=== PATIENT | female | born 1950 | race African-American/Black ===

== ENCOUNTER 2017-06-12 13:35 | Inpatient (IN) | payer OTHER, BC ==
--- NOTE | 2017-06-12 14:14 | PDOC ---
Attending Attestation - Resident Resident Name: Isaiah Lucero - ED Attending Attestation I have performed the following: I have examined & evaluated the patient, The case was reviewed & discussed with the resident, I agree w/resident's findings & plan, Exceptions are as noted - HPI HPI: 06/12/17 14:13 67 F with h/o HTN, HLD, DM presents to ER with L arm numbness and slurred speech since around 9 AM today. Pt states that she first noticed tingling in her left hand shortly after 9. Pt thought it was because her ring was too tight. The numbness progressed up her left arm. At 9:50, she was speaking to a friend on the phone, who told her that it sounded like she had food in her mouth. At this time, pt noticed that she was slurring her words. Pt denies any JACKMAN/N/V. Denies CP/SOB. - Physicial Exam PE: 06/12/17 14:56 "GENERAL: Awake, alert, and fully oriented, in no acute distress HEAD: No signs of trauma EYES: PERRLA, EOMI, sclera anicteric, conjunctiva clear ENT: Auricles normal inspection, hearing grossly normal, nares patent, oropharynx clear without exudates. Moist mucosa NECK: Nontender, no stepoffs, Normal ROM, supple, no lymphadenopathy, JVD, or masses LUNGS: Breath sounds equal, clear to auscultation bilaterally. No wheezes, and no crackles HEART: Regular rate and rhythm, normal S1 and S2, no murmurs, rubs or gallops ABDOMEN: Soft, nontender, normoactive bowel sounds. No guarding, no rebound. No masses EXTREMITIES: Normal range of motion, no edema. No clubbing or cyanosis. No cords, erythema, or tenderness NEUROLOGICAL: L sided facial droop, slightly diminished strength and sensation in LUE. 5/5 strength in BLE SKIN: Warm, Dry, normal turgor, no rashes or lesions noted. " - Medical Decision Making 06/12/17 14:58 67 F with LUE weakness and facial droop, concerning for acute stroke. Last known normal reportedly 9AM, though history is slightly unclear. - CTH - Labs - Neuro consult NIH Stroke Scale - Last Known Well Date/Time & Onset Date Last Known Well: 06/12/17 Time Last Known Well: 09:00 - Initial Evaluation Level of consciousness: Alert Ask patient the month and their age: Answers both correctly Ask patient to open & close eyes; make fist and let go: Obeys both correctly Best gaze (horizontal eye movement): Normal Visual field testing: No visual field loss Facial paresis (Show teeth/raise eyebrows/close eyes tight): Minor paralysis ( flattened nasolabial fold, asymmetry on smiling) Motor Function: Left Arm: Drift Motor Function: Right Arm: Normal (extends arm 90 (or 45) degrees for 10 seconds without drift Motor Function: Left Leg: Normal (extends leg 30 degrees for 5 seconds without drift) Motor Function: Right Leg: Normal (extends leg 30 degrees for 5 seconds without drift) Limb Ataxia: No ataxia Sensory(Use pinprick test arms,legs,trunk,face/side to side): Mild to moderate decrease in sensation Best language (Describe picture, name items, read sentences): No Aphasia Dysarthria (read several words): Mild to moderate slurring of words Extinction and Inattention: No abnormality - Total Score NIH Stroke Scale Score: 4
--- NOTE | 2017-06-12 14:15 | PDOC ---
History of Present Illness - General Chief Complaint: CVA/TIA Stated Complaint: SLURRED SPEECH, NUMBNESS TO LT HAND Time Seen by Provider: 06/12/17 13:53 - History of Present Illness Initial Comments: 06/12/17 14:12 Ms. Cuadra is a 67 yo woman with a past medical history of DM and HTN who presents after she started experiencing left arm numbness and slurred speech around 9:50 this morning. When she arrived to the ER she was noted to have left facial droop as well. She is currently experiencing no pain but says she is having difficulty pronouncing the letter p. She is here on vacation visiting family. Allergies: NKDA Surgeries: Hysterectomy Social: Some EtOH, denies tobacco history Past History - Past Medical History Allergies/Adverse Reactions: Allergies Allergy/AdvReac Type Severity Reaction Status Date / Time No Known Allergies Allergy Verified 06/12/17 13:42 CVA: Yes (MINI) Diabetes: Yes Hypercholesterolemia: Yes - Suicide/Smoking/Psychosocial Hx Smoking History: Never smoked Hx Alcohol Use: Yes (SOCIAL) Drug/Substance Use Hx: No Substance Use Type: None Review of Systems - Review of Systems Comments:: 06/12/17 14:19 GENERAL/CONSTITUTIONAL: +Difficulty speaking without some slurring. No fever or chills. HEAD, EYES, EARS, NOSE AND THROAT: No change in vision. No ear pain or discharge. No sore throat. CARDIOVASCULAR: No chest pain or shortness of breath RESPIRATORY: No cough, wheezing, or hemoptysis. GASTROINTESTINAL: No nausea, vomiting, diarrhea or constipation. GENITOURINARY: No dysuria, frequency, or change in urination. MUSCULOSKELETAL: No joint or muscle swelling or pain. No neck or back pain. SKIN: No rash NEUROLOGIC: +Some weakness in Left arm with numbness in left hand. No headache, vertigo, loss of consciousness. ENDOCRINE: No increased thirst. No abnormal weight change HEMATOLOGIC/LYMPHATIC: No anemia, easy bleeding, or history of blood clots. ALLERGIC/IMMUNOLOGIC: No hives or skin allergy. *Physical Exam - Vital Signs Last Vital Signs Temp Pulse Resp BP Pulse Ox 98.4 F 94 H 20 154/91 99 06/12/17 13:38 06/12/17 13:38 06/12/17 13:38 06/12/17 13:38 06/12/17 13:38 - Physical Exam Comments: 06/12/17 14:23 GENERAL: Awake, alert, and fully oriented, in no acute distress HEAD: No signs of trauma, normocephalic, atraumatic EYES: PERRLA, EOMI, sclera anicteric, conjunctiva clear ENT: Auricles normal inspection, hearing grossly normal, nares patent, oropharynx clear without exudates. Moist mucosa NECK: Normal ROM, supple, no lymphadenopathy, JVD, or masses LUNGS: No distress, speaks full sentences, clear to auscultation bilaterally HEART: Regular rate and rhythm, normal S1 and S2, no murmurs, rubs or gallops, peripheral pulses normal and equal bilaterally. ABDOMEN: Soft, nontender, normoactive bowel sounds. No guarding, no rebound. No masses EXTREMITIES: +Weakness noted in left arm with some drift. Normal inspection, Normal range of motion, no edema. No clubbing or cyanosis. NEUROLOGICAL: Cranial nerves II through XII grossly intact. Normal speech, normal gait, no focal sensorimotor deficits SKIN: Warm, Dry, normal turgor, no rashes or lesions noted. NIHSS: 3 Left arm drift Minor slurred speech Left facial droop NIH Stroke Scale - Last Known Well Date/Time & Onset Date Last Known Well: 06/12/17 Time Last Known Well: 09:50 - Initial Evaluation Level of consciousness: Alert Ask patient the month and their age: Answers both correctly Ask patient to open & close eyes; make fist and let go: Obeys both correctly Best gaze (horizontal eye movement): Normal Visual field testing: No visual field loss Facial paresis (Show teeth/raise eyebrows/close eyes tight): Normal symmetrical movement Motor Function: Left Arm: Drift Motor Function: Right Arm: Normal (extends arm 90 (or 45) degrees for 10 seconds without drift Motor Function: Left Leg: Normal (extends leg 30 degrees for 5 seconds without drift) Motor Function: Right Leg: Normal (extends leg 30 degrees for 5 seconds without drift) Limb Ataxia: No ataxia Sensory(Use pinprick test arms,legs,trunk,face/side to side): Normal Best language (Describe picture, name items, read sentences): Mild to moderate aphasia Dysarthria (read several words): Mild to moderate slurring of words Extinction and Inattention: No abnormality - Total Score NIH Stroke Scale Score: 3 Critical Care Time/[facility] Note - Medical Decision Making Note: 06/12/17 14:24 Patient presented at 4 hours and 15 minutes past first noticing symptoms. NIH stroke scale of 3 for left arm drift, slurred speech and left facial droop. Patient otherwise alert and oriented in no acute distress. Code trammell activated for suspected stroke. Discharge Disposition - Diagnosis Cerebrovascular accident (CVA) Qualifiers: CVA mechanism: unspecified Qualified Code(s): I63.9 - Cerebral infarction, unspecified - Discharge Dispostion Admit: Yes
[2017-06-12] MEDS ORDERED: ATORVASTATIN CA 80 MG TABLET (FP) PO ONE (14:36)
[2017-06-12] MEDS ORDERED: ASPIRIN 325 MG TABLET PO ONE (14:36)
[2017-06-12 14:40] LABS: BASOPHIL 0.4 % (0-2.0); EOSINOPHIL 1.2 % (0-4.5); MCH 27.1 pg (25.7-33.7); MCHC 32.5 g/dl (32.0-36.0); MEAN CELL VOLUME 83.5 fl (80-96); MEAN PLT VOLUME 7.1 fl (7.5-11.1); NEUTROPHILS 60.6 % (42.8-82.8); PLATELET COUNT 194 K/MM3 (134-434); RDW 14.3 % (11.6-15.6); WHITE BLOOD COUNT 5.7 K/mm3 (4.0-10.0)
[2017-06-12 14:49] LABS: ALBUMIN 3.4 g/dl (3.4-5.0); ANION GAP 8 (8-16); CALCIUM 9.1 mg/dL (8.5-10.1); CHOLESTEROL 241 mg/dL (50-200); CO2 30 mmol/L (21-32); GLUCOSE,RANDOM 99 mg/dL (74-106); SGOT/AST 20 U/L (15-37); SGPT/ALT 22 U/L (12-78)
[2017-06-12 14:51] LABS: ALK PHOS 113 U/L (45-117); BILIRUBIN,TOTAL 0.3 mg/dL (0.2-1.0); CPK 197 IU/L (26-192); TOT PROT 7.8 g/dl (6.4-8.2); TROPONIN I < 0.02 ng/ml (0.00-0.05)
[2017-06-12] MEDS ORDERED: ATORVASTATIN CA 80 MG TABLET (FP) ONE (14:52)
[2017-06-12] MEDS ORDERED: ASPIRIN 81 MG CHEWABLE TABLETS ONE (14:52)
[2017-06-12 15:06] LABS: INR 1.07 (0.82-1.09); PROTHROMBIN TIME (PATIENT) 11.8 SEC (9.98-11.88)
[2017-06-12] MEDS: SODIUM CHLORIDE 1,000 ML IV SCH (15:08)
--- NOTE | 2017-06-12 17:27 | PN ---
Teaching Attending Note Name of Resident: Humphrey Vuong ATTENDING PHYSICIAN STATEMENT I saw and evaluated the patient. I reviewed the resident's note and discussed the case with the resident. I agree with the resident's findings and plan as documented. SUBJECTIVE: Patient is a 67yo female with hx of CVA presented with left hand numbnesses and slurred speech. OBJECTIVE: Vital Signs Temperature 98.4 F 06/12/17 13:38 Pulse Rate 94 H 06/12/17 13:38 Respiratory Rate 20 06/12/17 13:38 Blood Pressure 154/91 06/12/17 13:38 O2 Sat by Pulse Oximetry (%) 99 06/12/17 13:38 CBCD WBC 5.7 K/mm3 (4.0-10.0) 06/12/17 14:12 RBC 4.17 M/mm3 (3.60-5.2) 06/12/17 14:12 Hgb 11.3 GM/dL (10.7-15.3) 06/12/17 14:12 Hct 34.8 % (32.4-45.2) 06/12/17 14:12 MCV 83.5 fl (80-96) 06/12/17 14:12 MCHC 32.5 g/dl (32.0-36.0) 06/12/17 14:12 RDW 14.3 % (11.6-15.6) 06/12/17 14:12 Plt Count 194 K/MM3 (134-434) 06/12/17 14:12 MPV 7.1 fl (7.5-11.1) L 06/12/17 14:12 CMP Sodium 141 mmol/L (136-145) 06/12/17 14:20 Potassium 4.0 mmol/L (3.5-5.1) 06/12/17 14:20 Chloride 103 mmol/L (98-107) 06/12/17 14:20 Carbon Dioxide 30 mmol/L (21-32) 06/12/17 14:20 Anion Gap 8 (8-16) 06/12/17 14:20 BUN 12 mg/dL (7-18) 06/12/17 14:20 Creatinine 1.0 mg/dL (0.55-1.02) 06/12/17 14:20 Creat Clearance w eGFR 54.97 (>60) 06/12/17 14:20 Random Glucose 99 mg/dL (74-106) 06/12/17 14:20 Calcium 9.1 mg/dL (8.5-10.1) 06/12/17 14:20 Total Bilirubin 0.3 mg/dL (0.2-1.0) 06/12/17 14:20 AST 20 U/L (15-37) 06/12/17 14:20 ALT 22 U/L (12-78) 06/12/17 14:20 Alkaline Phosphatase 113 U/L (45-117) 06/12/17 14:20 Total Protein 7.8 g/dl (6.4-8.2) 06/12/17 14:20 Albumin 3.4 g/dl (3.4-5.0) 06/12/17 14:20 CARDIAC ENZYMES Creatine Kinase 197 IU/L (26-192) H 06/12/17 14:20 Troponin I < 0.02 ng/ml (0.00-0.05) 06/12/17 14:20 Current Medications Generic Name Dose Route Start Last Admin Trade Name Freq PRN Reason Stop Dose Admin Dipyridamole/Aspirin 1 combo 06/12/17 20:45 Aggrenox - PO ONCE [facility] Heparin Sodium (Porcine) 5,000 unit 06/12/17 22:00 Heparin - SQ TID [facility] Sodium Chloride 1,000 mls @ 42 mls/hr 06/12/17 14:15 06/12/17 15:08 Normal Saline - IV 42 mls/hr ASDIR MISTI Administration Lisinopril 10 mg 06/13/17 10:00 Prinivil PO DAILY [facility] Home Medications Medication Instructions Recorded Aspirin/Dipyridamole [Aggrenox -] 1 combo PO ONCE 06/12/17 Atorvastatin Calcium 40 mg PO 06/12/17 Lisinopril 10 mg PO DAILY 06/12/17 Metformin HCl 500 mg PO DAILY 06/12/17 Simvastatin 40 mg PO HS 06/12/17 PE: sitting in bed with no acute distress. Neuro exam: CN2-12 grossly intact. No sensory or motor weakness noted. P5/5 bl heart:S1s2 POSITIVE, NO MURMUR APPRECIATED REST OF pe PER RESIDENT'S NOTE ASSESSMENT AND PLAN: Patient is a 67 year old female with a past medical history of TIA, HTN, HLD, presents to the ER with left hand numbnesses and slurred speech. . # Acute TIA r/o CVA with hx of CVA ; negative head CT ; ordered Brain MRI, MRA given aspirin 325mg x1 .lipid panel , Plavix ordered ,neuro consult appreciated , # T2DM sliding scale with coverage # HTN on Lisinopril DVT px: heparin
--- NOTE | 2017-06-12 18:17 | HP ---
CHIEF COMPLAINT: slurred speech PCP: out of town HISTORY OF PRESENT ILLNESS: 67 year old female from out of town, presents to the emergency room with slurred speacj and left hand tingling sensation that started early this morning. Patient state she was on the phone with her sister and her sister stated she was sounding "funny". She then went to the ER. Patient denies fever , chills, egan, n, v, chest pain, sob, abdominal pain, LOC, changed in bowel or bladder. PMHx of TIA, HLD, HTN. ER course was notable for: -out of tpa window -head Ct negative -NIH stroke scale +2; Recent Travel: yes from [place] PAST MEDICAL HISTORY: TIA , HLD, HTN PAST SURGICAL HISTORY: Social History: Smoking:no Drugs: no Family History: Allergies No Known Allergies Allergy (Verified 06/12/17 13:42) PHYSICAL EXAMINATION GENERAL: Awake, alert, and fully oriented, in no acute distress. HEAD: Normal with no signs of trauma. EYES: Pupils equal, round and reactive to light, extraocular movements intact, sclera anicteric, conjunctiva clear. No lid lag. EARS, NOSE, THROAT: Ears normal, nares patent, oropharynx clear without exudates. Moist mucous membranes. NECK: Normal range of motion, supple without lymphadenopathy, JVD, or masses. LUNGS: Breath sounds equal, clear to auscultation bilaterally. No wheezes, and no crackles. No accessory muscle use. HEART: Regular rate and rhythm, normal S1 and S2 without murmur, rub or gallop. ABDOMEN: Soft, nontender, not distended, normoactive bowel sounds, no guarding, no rebound, no masses. No hepatomegaly or splenomegaly. MUSCULOSKELETAL: Normal range of motion at all joints. No bony deformities or tenderness. No CVA tenderness. UPPER EXTREMITIES: 2+ pulses, warm, well-perfused. No cyanosis. No clubbing. No peripheral edema. LOWER EXTREMITIES: 2+ pulses, warm, well-perfused. No calf tenderness. No peripheral edema. NEUROLOGICAL: Cranial nerves II-XII intact. Normal speech. Normal gait. left arm pronator drift PSYCHIATRIC: Cooperative. Good eye contact. Appropriate mood and affect. SKIN: Warm, dry, normal turgor, no rashes or lesions noted, normal capillary refill. Laboratory Results - last 24 hr 06/12/17 16:47 POC Glucometer [id number] ASSESSMENT/PLAN: 67 year old female with a past medical history of TIA, HTN, HLD, presents to the ER with left hand numbnesses and slurred speech, TIA vs CVA. #CVA vs TIA: -stroke protocol activated -out of tpa window -head CT negative -Brain MRI, MRA -aspirin 325mg x1 -was on aggrenox at home; -lipid panel -tsh -bed side swallow eval; passed -echo -patient was on statin but allergic ; she was given one time in ER simvistatin 80mg. look for rxn if not then continue -consult neurology #DM; insulin SS bgm; dvt ppl Problem List - Problem (1) Cerebrovascular accident (CVA) Code(s): I63.9 - CEREBRAL INFARCTION, UNSPECIFIED Qualifiers: CVA mechanism: unspecified Qualified Code(s): I63.9 - Cerebral infarction, unspecified (2) HTN (hypertension) Code(s): I10 - ESSENTIAL (PRIMARY) HYPERTENSION Visit type - Emergency Visit Emergency Visit: Yes ED Registration Date: 06/12/17 Care time: The patient presented to the Emergency Department on the above date and was hospitalized for further evaluation of their emergent condition. - New Patient This patient is new to me today: Yes Date on this admission: 06/12/17 - Critical Care Critical Care patient: No
[2017-06-12] MEDS ORDERED: ASPIRIN/DIPYRIDAMOLE 25 MG/200 MG CAPSULE (FP) PO ONE (20:45)
--- NOTE | 2017-06-12 21:30 | HP ---
CHIEF COMPLAINT: slurred speech PCP: N/A HISTORY OF PRESENT ILLNESS: Patient is a 67 yo F with a PMH of HLD, HTN, and CVA/TIA, presented today with a left hand tingling sensation that started around 10am. She said she didn't think much of it until she was told by her sister that she sounded funny on the phone a few hours later. She said she was having slurred speech said that her symptoms resolved around 4pm. She denied headache, sob, LOC, chest pain, nausea, vomiting, dizziness, weakness, ER course was notable for: -out of tpa window -Head CT: No acute intracranial hemorrhage. Chronic right MCA infarcts, chronic right cerebellar infarct and small chronic cortical infarcts in the high left parietal lobe. -NIH stroke scale: 2 Recent Travel: came from [place] PAST MEDICAL HISTORY: HTN, HLD, HTN, CVA/TIA PAST SURGICAL HISTORY: N/A Social History: Smoking:denies Alcohol:denies Drugs: denies Family History: Allergies No Known Allergies Allergy (Verified 06/12/17 13:42) HOME MEDICATIONS: Home Medications Medication Instructions Recorded Aspirin/Dipyridamole [Aggrenox -] 1 combo PO ONCE 06/12/17 Atorvastatin Calcium 40 mg PO 06/12/17 Lisinopril 10 mg PO DAILY 06/12/17 Metformin HCl 500 mg PO DAILY 06/12/17 Simvastatin 40 mg PO HS 06/12/17 REVIEW OF SYSTEMS CONSTITUTIONAL: Absent: fever, chills, diaphoresis, generalized weakness, malaise, loss of appetite, weight change HEENT: Absent: rhinorrhea, nasal congestion, throat pain, throat swelling, difficulty swallowing, mouth swelling, ear pain, eye pain, visual changes CARDIOVASCULAR: Absent: chest pain, syncope, palpitations, irregular heart rate, lightheadedness , peripheral edema RESPIRATORY: Absent: cough, shortness of breath, dyspnea with exertion, orthopnea, wheezing, stridor, hemoptysis GASTROINTESTINAL: Absent: abdominal pain, abdominal distension, nausea, vomiting, diarrhea, constipation, melena, hematochezia GENITOURINARY: Absent: dysuria, frequency, urgency, hesitancy, hematuria, flank pain, genital pain MUSCULOSKELETAL: Absent: myalgia, arthralgia, joint swelling, back pain, neck pain SKIN: Absent: rash, itching, pallor HEMATOLOGIC/IMMUNOLOGIC: Absent: easy bleeding, easy bruising, lymphadenopathy, frequent infections ENDOCRINE: Absent: unexplained weight gain, unexplained weight loss, heat intolerance, cold intolerance NEUROLOGIC: Absent: headache, focal weakness or paresthesias, dizziness, unsteady gait, seizure, mental status changes, bladder or bowel incontinence PSYCHIATRIC: Absent: anxiety, depression, suicidal or homicidal ideation, hallucinations. PHYSICAL EXAMINATION Vital Signs - 24 hr 06/12/17 06/12/17 18:44 18:58 Pulse Rate 85 Pulse Rate [ 84 Apical] Respiratory 20 Rate Blood Pressure 150/85 [Left Arm] O2 Sat by Pulse 100 100 Oximetry (%) GENERAL: Awake, alert, and fully oriented, in no acute distress. HEAD: Normal with no signs of trauma. EYES: Pupils equal, round and reactive to light, extraocular movements intact, sclera anicteric, conjunctiva clear. No lid lag. EARS, NOSE, THROAT: Ears normal, nares patent, oropharynx clear without exudates. Moist mucous membranes. NECK: Normal range of motion, supple without lymphadenopathy, JVD, or masses. LUNGS: Breath sounds equal, clear to auscultation bilaterally. No wheezes, and no crackles. No accessory muscle use. HEART: Regular rate and rhythm, normal S1 and S2 without murmur, rub or gallop. ABDOMEN: Soft, nontender, not distended, normoactive bowel sounds, no guarding, no rebound, no masses. No hepatomegaly or splenomegaly. MUSCULOSKELETAL: Normal range of motion at all joints. No bony deformities or tenderness. No CVA tenderness. UPPER EXTREMITIES: Left arm pronator drift. 2+ pulses, warm, well-perfused. No cyanosis. No clubbing. No peripheral edema. LOWER EXTREMITIES: 2+ pulses, warm, well-perfused. No calf tenderness. No peripheral edema. NEUROLOGICAL: Cranial nerves II-XII intact. Normal speech. Normal gait. PSYCHIATRIC: Cooperative. Good eye contact. Appropriate mood and affect. SKIN: Warm, dry, normal turgor, no rashes or lesions noted, normal capillary refill. Laboratory Results - last 24 hr 06/12/17 16:47 POC Glucometer [id number] ASSESSMENT/PLAN: 67 year old female with a past medical history of TIA, HTN, HLD, presents to the ER with left hand numbnesses and slurred speech. #CVA vs. TIA -stroke protocol activated -Head CT unremarkable for acute intracranial hemorrhage -Out of TPA window -Brain MRA unremarkable -Neurology consulted -Passed bedside swallow eval -Continue aspirin 81mg, was given 325 once. -TSH and lipid panel ordered -FU labs in the AM #HTN: -Continue Lisinopril 10mg -Continue Amlodipine 5mg #FEN: - NS 42cc/hour -WNL -Sodium controlled diet Visit type - Emergency Visit Emergency Visit: Yes ED Registration Date: 06/12/17 Care time: The patient presented to the Emergency Department on the above date and was hospitalized for further evaluation of their emergent condition. - New Patient This patient is new to me today: Yes Date on this admission: 06/13/17 - Critical Care Critical Care patient: No
[2017-06-12] MEDS ORDERED: amLODIPine BESYLATE 5 MG TABLET (FP) ONE (21:31)
[2017-06-12] MEDS ORDERED: HEPARIN NA (PORCINE) 5,000 UNITS/ML 1ML VIAL ONE (21:32)
[2017-06-12] MEDS ORDERED: ASPIRIN/DIPYRIDAMOLE 25 MG/200 MG CAPSULE (FP) ONE (21:32)
[2017-06-12] MEDS: amLODIPine BESYLATE 5 MG TABLET (FP) PO SCH (21:49)
[2017-06-12] MEDS: HEPARIN NA (PORCINE) 5,000 UNITS/ML 1ML VIAL SQ SCH (21:49)
[2017-06-12 21:57] LABS: URINE APPEARANCE CLEAR; URINE BILIRUBIN NEGATIVE (NEGATIVE); URINE BLOOD NEGATIVE (NEGATIVE); URINE COLOR LTYELLOW; URINE GLUCOSE (UA) NEGATIVE (NEGATIVE); URINE KETONE NEGATIVE (NEGATIVE); URINE NITRITE NEGATIVE (NEGATIVE); URINE PROTEIN NEGATIVE (NEGATIVE); URINE UROBILINOGEN NEGATIVE mg/dL (0.2-1.0)
[2017-06-12 22:02] LABS: URINE LEUK ESTERASE 2+ (NEGATIVE)
[2017-06-12 22:26] LABS: URINE RBC <1 /hpf (0-3); URINE WBC 1 /hpf (3-5)
[2017-06-13 00:28] VITALS: BMI 27.6
[2017-06-13] MEDS ORDERED: PNEUMOC 13-VAL CONJ-DIP CRM/PF 0.5 ML DISP.SYRIN IM ONE (00:43)
[2017-06-13] MEDS: INSULIN SLIDING SCALE (NOVOLOG) 1 VIAL SQ SCH ×5 (01:24→23:00)
[2017-06-13] MEDS ORDERED: ACETAMINOPHEN 325 MG TABLET (FP) PO ONE (05:14)
[2017-06-13] MEDS: HEPARIN NA (PORCINE) 5,000 UNITS/ML 1ML VIAL SQ SCH ×3 (06:10→23:00)
[2017-06-13 07:23] LABS: ALBUMIN 3.1 g/dl (3.4-5.0); ANION GAP 5 (8-16); CALCIUM 8.6 mg/dL (8.5-10.1); CHOLESTEROL 230 mg/dL (50-200); CO2 28 mmol/L (21-32); CREATININE 0.9 mg/dL (0.55-1.02); GLUCOSE,RANDOM 102 mg/dL (74-106); MAGNESIUM 2.1 mg/dL (1.8-2.4); PHOSPHOROUS 3.6 mg/dL (2.5-4.9); SGOT/AST 20 U/L (15-37); SGPT/ALT 21 U/L (12-78)
[2017-06-13 07:31] LABS: ALK PHOS 118 U/L (45-117); BILIRUBIN,TOTAL 0.4 mg/dL (0.2-1.0); THYROID STIMULATING HORMONE 1.96 uIU/ml (0.358-3.74); TOT PROT 7.2 g/dl (6.4-8.2)
--- NOTE | 2017-06-13 08:53 | CON.NEURO ---
Consult - History of Present Illness History of Present Illness: 67 yo woman with a past medical history of DM and HTN who presents after she started experiencing left arm numbness and slurred speech around 9:50 this morning. When she arrived to the ER she was noted to have left facial droop as well. She is currently experiencing no pain but says she is having difficulty pronouncing the letter p. She is here on vacation visiting family. Patient presented at 4 hours and 15 minutes past first noticing symptoms. NIH stroke scale of 3 for left arm drift, slurred speech and left facial droop. Patient otherwise alert and oriented in no acute distress. Given low NIH and out of 3 hour window, TPA was not given. ( unable to get completed work up before the 4.5 hour window). MRI BRAIn reviewed-large RIGHT MCA stroke, MRA (-) . She feels like her Sx resolved. - Alcohol/Substance Use Hx Alcohol Use: Yes (SOCIAL) - Smoking History Smoking history: Never smoked Home Medications - Allergies Allergies/Adverse Reactions: Allergies Allergy/AdvReac Type Severity Reaction Status Date / Time No Known Allergies Allergy Verified 06/12/17 13:42 - Home Medications Home Medications: Ambulatory Orders Aspirin/Dipyridamole [Aggrenox -] 1 combo PO ONCE 06/12/17 Atorvastatin Calcium 10 mg PO DAILY 06/12/17 Lisinopril 10 mg PO DAILY 06/12/17 Metformin HCl 500 mg PO BID 06/12/17 Clopidogrel Bisulfate [Clopidogrel] 75 mg PO DAILY 06/13/17 Physical Exam-Neuro Vital Signs: Vital Signs Temperature 98.6 F 06/13/17 06:00 Pulse Rate 80 06/13/17 06:00 Respiratory Rate 20 06/13/17 06:00 Blood Pressure 124/67 06/13/17 06:00 O2 Sat by Pulse Oximetry (%) 98 06/12/17 22:46 Labs: CBC, BMP 06/13/17 06:00 INR, PTT INR 1.07 (0.82-1.09) 06/12/17 14:12 - Neuro Exam Level Of Consciousness: Yes: Alert, Oriented to Person (EOMI, VFF, no clear facial, motor 5/5, no drift, reflexes symmetric, no sesnory deficits ) NIH Stroke Scale - Last Known Well Date/Time & Onset Date Last Known Well: 09/27/17 - Initial Evaluation Level of consciousness: Alert Ask patient the month and their age: Answers both correctly Ask patient to open & close eyes; make fist and let go: Obeys both correctly Best gaze (horizontal eye movement): Normal Visual field testing: No visual field loss Facial paresis (Show teeth/raise eyebrows/close eyes tight): Normal symmetrical movement Motor Function: Left Arm: Normal Motor Function: Right Arm: Normal (extends arm 90 (or 45) degrees for 10 seconds without drift Motor Function: Left Leg: Normal (extends leg 30 degrees for 5 seconds without drift) Motor Function: Right Leg: Normal (extends leg 30 degrees for 5 seconds without drift) Limb Ataxia: No ataxia Sensory(Use pinprick test arms,legs,trunk,face/side to side): Normal Best language (Describe picture, name items, read sentences): No Aphasia Dysarthria (read several words): Normal articulation Extinction and Inattention: No abnormality - Total Score NIH Stroke Scale Score: 0 Imaging - Results Cat Scan: Report Reviewed, Image Reviewed MRI: Report Reviewed, Image Reviewed Problem List - Problems (1) Cerebrovascular accident (CVA) Code(s): I63.9 - CEREBRAL INFARCTION, UNSPECIFIED Qualifiers: CVA mechanism: unspecified Qualified Code(s): I63.9 - Cerebral infarction, unspecified (2) HTN (hypertension) Code(s): I10 - ESSENTIAL (PRIMARY) HYPERTENSION (3) Left middle cerebral artery embolism Code(s): I66.02 - OCCLUSION AND STENOSIS OF LEFT MIDDLE CEREBRAL ARTERY Assessment/Plan 67 yo woman with a past medical history of DM and HTN who presents after she started experiencing left arm numbness and slurred speech around 9:50 this morning. When she arrived to the ER she was noted to have left facial droop as well. She is currently experiencing no pain but says she is having difficulty pronouncing the letter p. She is here on vacation visiting family. Patient presented at 4 hours and 15 minutes past first noticing symptoms. NIH stroke scale of 3 for left arm drift, slurred speech and left facial droop. Patient otherwise alert and oriented in no acute distress. Given low NIH and out of 3 hour window, TPA was not given. ( unable to get completed work up before the 4.5 hour window). MRI BRAIn reviewed-large RIGHT MCA stroke, MRA (-) . She feels like her Sx resolved. although large rdaiographic stroke, she appaers quite well without any notebale deficits EMBOLIC GOODSON ,cardioembolic vs other check ECHO, DOPPLERS, Holter (may need intermediate project manager holter) add plavix to ASA for now, + statin, JORGE PT, though will not likely require rehab DR GARZA [phone]
[2017-06-13] MEDS ORDERED: PT OWN MED DRAWER 7, Y5N ONE (09:43)
[2017-06-13] MEDS ORDERED: ASPIRIN 325 MG ENTERIC COATED TABLET (FP) PO SCH (10:00)
[2017-06-13] MEDS ORDERED: ASPIRIN COATED 81 MG TABLET.EC PO SCH (10:00)
[2017-06-13] MEDS: LISINOPRIL 10 MG TABLET (FP) PO SCH (10:09)
[2017-06-13] MEDS: amLODIPine BESYLATE 5 MG TABLET (FP) PO SCH (10:10)
--- NOTE | 2017-06-13 10:43 | EKG ---
Test Reason : Blood Pressure : / mmHG Vent. Rate : 087 BPM Atrial Rate : 087 BPM P-R Int : 124 ms QRS Dur : 124 ms QT Int : 396 ms P-R-T Axes : 065 053 057 degrees QTc Int : 476 ms NORMAL SINUS RHYTHM POSSIBLE LEFT ATRIAL ENLARGEMENT RIGHT BUNDLE BRANCH BLOCK ABNORMAL ECG WHEN COMPARED WITH ECG OF 26-DEC-2008 13:25, RIGHT BUNDLE BRANCH BLOCK IS NOW PRESENT Confirmed by JYOTHI ELIAS, MICHELLE ([id number]) on 06/13/2017 10:43:28 AM Referred By: Confirmed By:MICHELLE ROE MD
[2017-06-13] MEDS ORDERED: FLU VACCINE QUAD 60 MCG/0.5 ML (MDV 17-18) IM ONE (12:00)
[2017-06-13] MEDS: CLOPIDOGREL BISULFATE 75 MG TABLET (FP) PO SCH (13:36)
[2017-06-13 16:13] LABS: URINE MARIJUANA THC NEGATIVE ng/ml (CUTOFF=50)
--- NOTE | 2017-06-13 18:58 | PN ---
Physical Exam: SUBJECTIVE: Patient seen and examined. No acute events over night. Patient said she feels fine and denies pain, weakness, dizziness, nausea, vomiting, fever, and SOB. OBJECTIVE: Vital Signs Period Temp Pulse Resp BP Sys/Rabago Pulse Ox Last 24 Hr 97.5 F-98.6 F 75-87 16-20 106-150/51-85 98-100 GENERAL: The patient is awake, alert, and fully oriented, in no acute distress. HEAD: Normal with no signs of trauma. EYES: PERRL, extraocular movements intact, sclera anicteric, conjunctiva clear. No ptosis. ENT: Ears normal, nares patent, oropharynx clear without exudates, moist mucous membranes. NECK: Trachea midline, full range of motion, supple. LUNGS: Breath sounds equal, clear to auscultation bilaterally, no wheezes, no crackles, no accessory muscle use. HEART: Regular rate and rhythm, S1, S2 without murmur, rub or gallop. ABDOMEN: Soft, nontender, nondistended, normoactive bowel sounds, no guarding, no rebound, no hepatosplenomegaly, no masses. EXTREMITIES: 2+ pulses, warm, well-perfused, no edema. RLE strength 4/5. LLE strength 5/5 NEUROLOGICAL: Cranial nerves II through XII grossly intact. Normal speech, gait not observed. PSYCH: Normal mood, normal affect. SKIN: Warm, dry, normal turgor, no rashes or lesions noted Laboratory Results - last 24 hr 06/12/17 06/13/17 06/13/17 21:40 01:23 05:47 Sodium Potassium Chloride Carbon Dioxide Anion Gap BUN Creatinine Creat Clearance w eGFR POC Glucometer 112 103 Random Glucose Calcium Phosphorus Magnesium Total Bilirubin AST ALT Alkaline Phosphatase Total Protein Albumin Triglycerides Cholesterol Total LDL Cholesterol HDL Cholesterol TSH Urine Color Ltyellow Urine Appearance Clear Urine pH 6.0 Ur Specific [place] 1.020 Urine Protein Negative Urine Glucose (UA) Negative Urine Ketones Negative Urine Blood Negative Urine Nitrite Negative Urine Bilirubin Negative Urine Urobilinogen Negative Urine RBC <1 Urine WBC 1 Ur Epithelial Cells Rare Opiates Screen Methadone Screen Barbiturate Screen Phencyclidine Screen Ur Amphetamines Screen MDMA (Ecstasy) Screen Benzodiazepines Screen Cocaine Screen U Marijuana (THC) Screen 06/13/17 06/13/17 06/13/17 06:00 11:23 14:45 Sodium 140 Potassium 3.7 Chloride 107 Carbon Dioxide 28 Anion Gap 5 L BUN 11 Creatinine 0.9 Creat Clearance w eGFR > 60 POC Glucometer 107 Random Glucose 102 Calcium 8.6 Phosphorus 3.6 Magnesium 2.1 Total Bilirubin 0.4 D AST 20 ALT 21 Alkaline Phosphatase 118 H Total Protein 7.2 Albumin 3.1 L Triglycerides 103 Cholesterol 230 H Total LDL Cholesterol 156 H HDL Cholesterol 46 TSH 1.96 Urine Color Urine Appearance Urine pH Ur Specific [place] Urine Protein Urine Glucose (UA) Urine Ketones Urine Blood Urine Nitrite Urine Bilirubin Urine Urobilinogen Urine RBC Urine WBC Ur Epithelial Cells Opiates Screen Negative Methadone Screen Negative Barbiturate Screen Negative Phencyclidine Screen Negative Ur Amphetamines Screen Negative MDMA (Ecstasy) Screen Negative Benzodiazepines Screen Negative Cocaine Screen Negative U Marijuana (THC) Screen Negative 06/13/17 17:06 Sodium Potassium Chloride Carbon Dioxide Anion Gap BUN Creatinine Creat Clearance w eGFR POC Glucometer 113 Random Glucose Calcium Phosphorus Magnesium Total Bilirubin AST ALT Alkaline Phosphatase Total Protein Albumin Triglycerides Cholesterol Total LDL Cholesterol HDL Cholesterol TSH Urine Color Urine Appearance Urine pH Ur Specific [place] Urine Protein Urine Glucose (UA) Urine Ketones Urine Blood Urine Nitrite Urine Bilirubin Urine Urobilinogen Urine RBC Urine WBC Ur Epithelial Cells Opiates Screen Methadone Screen Barbiturate Screen Phencyclidine Screen Ur Amphetamines Screen MDMA (Ecstasy) Screen Benzodiazepines Screen Cocaine Screen U Marijuana (THC) Screen Active Medications Generic Name Dose Route Start Last Admin Trade Name Joselitoq PRN Reason Stop Dose Admin Amlodipine Besylate 5 mg 06/12/17 21:00 06/13/17 10:10 Norvasc - PO 5 mg DAILY MISTI Administration Aspirin 81 mg 06/14/17 10:00 Ecotrin - PO DAILY MISTI Atorvastatin Calcium 80 mg 06/13/17 22:00 Lipitor - PO HS MISTI Clopidogrel Bisulfate 75 mg 06/13/17 10:30 06/13/17 13:36 Plavix - PO 75 mg DAILY MISTI Administration Heparin Sodium (Porcine) 5,000 unit 06/12/17 22:00 06/13/17 13:38 Heparin - SQ 5,000 unit TID MISTI Administration Sodium Chloride 1,000 mls @ 42 mls/hr 06/12/17 14:15 06/12/17 15:08 Normal Saline - IV 42 mls/hr ASDIR MISTI Administration Insulin Aspart 1 vial 06/12/17 22:00 06/13/17 17:07 Novolog Vial Sliding Scale - SQ Not Given ACHS [facility] Protocol Lisinopril 10 mg 06/13/17 10:00 06/13/17 10:09 Prinivil PO 10 mg DAILY [facility] Administration ASSESSMENT/PLAN: 67 year old female with a past medical history of TIA, HTN, HLD, presents to the ER with left hand numbnesses and slurred speech. #TIA vs. CVA - CT: No acute intracranial hemorrhage. Chronic right MCA infarcts, chronic right cerebellar infarct and small chronic cortical infarcts in the high left parietal lobe. -Brain and neck MRA- unremarkable -Continue aspirin 81 -continue lipitor 80mg -continue plavix 75mg -FU MRI -Vital signs -Neurochecks #HTN: -Continue Lisinopril 10mg -Continue Amlodipine 5mg #FEN: -NS 42cc/hour -WNL -Sodium controlled diet #DVT PPX -Heparin SQ Visit type - Emergency Visit Emergency Visit: Yes ED Registration Date: 06/12/17 Care time: The patient presented to the Emergency Department on the above date and was hospitalized for further evaluation of their emergent condition. - New Patient This patient is new to me today: No - Critical Care Critical Care patient: No
--- NOTE | 2017-06-13 19:28 | PN ---
Teaching Attending Note Name of Resident: Humphrey Vuong ATTENDING PHYSICIAN STATEMENT I saw and evaluated the patient. I reviewed the resident's note and discussed the case with the resident. I agree with the resident's findings and plan as documented. SUBJECTIVE: Patient is comfortable with no acute distress, no shortness of breath, no chest pain, comfortable, no Dysphagia OBJECTIVE: Vital Signs Temperature 98.5 F 06/13/17 14:19 Pulse Rate 79 06/13/17 14:19 Respiratory Rate 16 06/13/17 14:19 Blood Pressure 131/74 06/13/17 14:19 O2 Sat by Pulse Oximetry (%) 98 06/12/17 22:46 CBCD WBC 5.7 K/mm3 (4.0-10.0) 06/12/17 14:12 RBC 4.17 M/mm3 (3.60-5.2) 06/12/17 14:12 Hgb 11.3 GM/dL (10.7-15.3) 06/12/17 14:12 Hct 34.8 % (32.4-45.2) 06/12/17 14:12 MCV 83.5 fl (80-96) 06/12/17 14:12 MCHC 32.5 g/dl (32.0-36.0) 06/12/17 14:12 RDW 14.3 % (11.6-15.6) 06/12/17 14:12 Plt Count 194 K/MM3 (134-434) 06/12/17 14:12 MPV 7.1 fl (7.5-11.1) L 06/12/17 14:12 CMP Sodium 140 mmol/L (136-145) 06/13/17 06:00 Potassium 3.7 mmol/L (3.5-5.1) 06/13/17 06:00 Chloride 107 mmol/L (98-107) 06/13/17 06:00 Carbon Dioxide 28 mmol/L (21-32) 06/13/17 06:00 Anion Gap 5 (8-16) L 06/13/17 06:00 BUN 11 mg/dL (7-18) 06/13/17 06:00 Creatinine 0.9 mg/dL (0.55-1.02) 06/13/17 06:00 Creat Clearance w eGFR > 60 (>60) 06/13/17 06:00 Random Glucose 102 mg/dL (74-106) 06/13/17 06:00 Calcium 8.6 mg/dL (8.5-10.1) 06/13/17 06:00 Total Bilirubin 0.4 mg/dL (0.2-1.0) D 06/13/17 06:00 AST 20 U/L (15-37) 06/13/17 06:00 ALT 21 U/L (12-78) 06/13/17 06:00 Alkaline Phosphatase 118 U/L (45-117) H 06/13/17 06:00 Total Protein 7.2 g/dl (6.4-8.2) 06/13/17 06:00 Albumin 3.1 g/dl (3.4-5.0) L 06/13/17 06:00 CARDIAC ENZYMES Creatine Kinase 197 IU/L (26-192) H 06/12/17 14:20 Troponin I < 0.02 ng/ml (0.00-0.05) 06/12/17 14:20 Current Medications Generic Name Dose Route Start Last Admin Trade Name Joselitoq PRN Reason Stop Dose Admin Amlodipine Besylate 5 mg 06/12/17 21:00 06/13/17 10:10 Norvasc - PO 5 mg DAILY [facility] Administration Aspirin 81 mg 06/14/17 10:00 Ecotrin - PO DAILY [facility] Atorvastatin Calcium 80 mg 06/13/17 22:00 Lipitor - PO [facility] Clopidogrel Bisulfate 75 mg 06/13/17 10:30 06/13/17 13:36 Plavix - PO 75 mg DAILY [facility] Administration Heparin Sodium (Porcine) 5,000 unit 06/12/17 22:00 06/13/17 13:38 Heparin - SQ 5,000 unit TID [facility] Administration Sodium Chloride 1,000 mls @ 42 mls/hr 06/12/17 14:15 06/12/17 15:08 Normal Saline - IV 42 mls/hr ASDIR [facility] Administration Insulin Aspart 1 vial 06/12/17 22:00 06/13/17 17:07 Novolog Vial Sliding Scale - SQ Not Given ACHS [facility] Protocol Lisinopril 10 mg 06/13/17 10:00 06/13/17 10:09 Prinivil PO 10 mg DAILY [facility] Administration Laboratory Tests 06/13/17 06:00 Triglycerides 103 Cholesterol 230 H Total LDL Cholesterol 156 H HDL Cholesterol 46 TSH 1.96 PE: comfortable with no acute distress rest of PE per resident's note CT of the head: Chronic right MCA infarcts, chronic right cerebellar infarct and small chronic cortical infarcts in the high left parietal lobe. -Brain and neck MRA- unremarkable ASSESSMENT AND PLAN: Patient is a 67 year old female with a past medical history of TIA, HTN, HLD, presents to the ER with left hand numbnesses and slurred speech. . # Acute TIA resolved with hx of old large CVA ordered Brain MRI, echo is unremarkable, carotid is unremarkable On 81mg ASspirin and Plavix neuro consult appreciated, . Holter monitor as an outpatient. cardio consult # T2DM sliding scale with coverage # HTN controlled on Lisinopril # HLD, needs high intensity Statins : will increase the dose of Lipitor to 80mg from 40mg since High LDL , low HDl DVT px: heparin
[2017-06-13] MEDS ORDERED: ATORVASTATIN CA 80 MG TABLET (FP) PO SCH (22:00)
[2017-06-14] MEDS: INSULIN SLIDING SCALE (NOVOLOG) 1 VIAL SQ SCH ×2 (06:14→11:34)
[2017-06-14] MEDS: HEPARIN NA (PORCINE) 5,000 UNITS/ML 1ML VIAL SQ SCH ×2 (06:14→15:13)
[2017-06-14] MEDS ORDERED: ASPIRIN COATED 81 MG TABLET.EC PO SCH (10:00)
[2017-06-14] MEDS: amLODIPine BESYLATE 5 MG TABLET (FP) PO SCH (10:27)
[2017-06-14] MEDS: CLOPIDOGREL BISULFATE 75 MG TABLET (FP) PO SCH (10:27)
[2017-06-14] MEDS: LISINOPRIL 10 MG TABLET (FP) PO SCH (10:27)
--- NOTE | 2017-06-14 11:20 | CON.CARD ---
Cardiology Consult (text) - Consultation Consultation Note: cc: slurred speech, left arm numbness hpi: 67 f hx htn, hld, tia, dm here with slurred speech, left arm numbness. Sxs resolved now. No cp, sob, palps, dizzy, loc, pnd, orthopnea, le edema. No hx hrt dz. pmh: per hpi psh: hysterectomy social: no tob fam: no premature cad, scd ros: per hpi; no nvd, fever, cough, vision changes, nasal congestion, gib, hematuria, dysuria meds: Ambulatory Orders Aspirin/Dipyridamole [Aggrenox -] 1 combo PO ONCE 06/12/17 Atorvastatin Calcium 10 mg PO DAILY 06/12/17 Lisinopril 10 mg PO DAILY 06/12/17 Metformin HCl 500 mg PO BID 06/12/17 Clopidogrel Bisulfate [Clopidogrel] 75 mg PO DAILY 06/13/17 pe: Vital Signs Period Temp Pulse Resp BP Sys/Rabago Pulse Ox Last 24 Hr 98.5 F-98.9 F 76-87 16-16 119-132/65-74 nad no jvd rrr s1s2 no mrg cta bl nl eff aaox3 no le e/c/c abd nt nd pos bs no jaundice diaphoresis pos dp pt no carotid bruits Laboratory Last Values WBC 5.7 K/mm3 (4.0-10.0) 06/12/17 14:12 RBC 4.17 M/mm3 (3.60-5.2) 06/12/17 14:12 Hgb 11.3 GM/dL (10.7-15.3) 06/12/17 14:12 Hct 34.8 % (32.4-45.2) 06/12/17 14:12 MCV 83.5 fl (80-96) 06/12/17 14:12 MCH 27.1 pg (25.7-33.7) 06/12/17 14:12 MCHC 32.5 g/dl (32.0-36.0) 06/12/17 14:12 RDW 14.3 % (11.6-15.6) 06/12/17 14:12 Plt Count 194 K/MM3 (134-434) 06/12/17 14:12 MPV 7.1 fl (7.5-11.1) L 06/12/17 14:12 Neutrophils % 60.6 % (42.8-82.8) 06/12/17 14:12 Lymphocytes % 26.6 % (8-40) 06/12/17 14:12 Monocytes % 11.2 % (3.8-10.2) H 06/12/17 14:12 Eosinophils % 1.2 % (0-4.5) 06/12/17 14:12 Basophils % 0.4 % (0-2.0) 06/12/17 14:12 PT with INR 11.80 SEC (9.98-11.88) 06/12/17 14:12 INR 1.07 (0.82-1.09) 06/12/17 14:12 Sodium 140 mmol/L (136-145) 06/13/17 06:00 Potassium 3.7 mmol/L (3.5-5.1) 06/13/17 06:00 Chloride 107 mmol/L (98-107) 06/13/17 06:00 Carbon Dioxide 28 mmol/L (21-32) 06/13/17 06:00 Anion Gap 5 (8-16) L 06/13/17 06:00 BUN 11 mg/dL (7-18) 06/13/17 06:00 Creatinine 0.9 mg/dL (0.55-1.02) 06/13/17 06:00 Creat Clearance w eGFR > 60 (>60) 06/13/17 06:00 POC Glucometer 113 UNITS (()) 06/14/17 06:11 Random Glucose 102 mg/dL (74-106) 06/13/17 06:00 Calcium 8.6 mg/dL (8.5-10.1) 06/13/17 06:00 Phosphorus 3.6 mg/dL (2.5-4.9) 06/13/17 06:00 Magnesium 2.1 mg/dL (1.8-2.4) 06/13/17 06:00 Total Bilirubin 0.4 mg/dL (0.2-1.0) D 06/13/17 06:00 AST 20 U/L (15-37) 06/13/17 06:00 ALT 21 U/L (12-78) 06/13/17 06:00 Alkaline Phosphatase 118 U/L (45-117) H 06/13/17 06:00 Creatine Kinase 197 IU/L (26-192) H 06/12/17 14:20 Creatine Kinase Index 0.5 % (0.0-5.0) 06/12/17 14:20 CK-MB (CK-2) < 1.000 ng/mL (0.5-3.6) 06/12/17 14:20 Troponin I < 0.02 ng/ml (0.00-0.05) 06/12/17 14:20 Total Protein 7.2 g/dl (6.4-8.2) 06/13/17 06:00 Albumin 3.1 g/dl (3.4-5.0) L 06/13/17 06:00 Triglycerides 103 mg/dL (35-160) 06/13/17 06:00 Cholesterol 230 mg/dL (50-200) H 06/13/17 06:00 Total LDL Cholesterol 156 mg/dL (5-100) H 06/13/17 06:00 HDL Cholesterol 46 mg/dL (40-60) 06/13/17 06:00 TSH 1.96 uIU/ml (0.358-3.74) 06/13/17 06:00 Urine Color Ltyellow 06/12/17 21:40 Urine Appearance Clear 06/12/17 21:40 Urine pH 6.0 (5.0-8.0) 06/12/17 21:40 Ur Specific [place] 1.020 (1.005-1.025) 06/12/17 21:40 Urine Protein Negative (NEGATIVE) 06/12/17 21:40 Urine Glucose (UA) Negative (NEGATIVE) 06/12/17 21:40 Urine Ketones Negative (NEGATIVE) 06/12/17 21:40 Urine Blood Negative (NEGATIVE) 06/12/17 21:40 Urine Nitrite Negative (NEGATIVE) 06/12/17 21:40 Urine Bilirubin Negative (NEGATIVE) 06/12/17 21:40 Urine Urobilinogen Negative mg/dL (0.2-1.0) 06/12/17 21:40 Urine RBC <1 /hpf (0-3) 06/12/17 21:40 Urine WBC 1 /hpf (3-5) 06/12/17 21:40 Ur Epithelial Cells Rare /hpf (FEW) 06/12/17 21:40 Opiates Screen Negative ng/ml (WUKERK=133) 06/13/17 14:45 Methadone Screen Negative ng/ml (OSAVXG=432) 06/13/17 14:45 Barbiturate Screen Negative ng/ml (KMGZND=264) 06/13/17 14:45 Phencyclidine Screen Negative ng/ml (CUTOFF=25) 06/13/17 14:45 Ur Amphetamines Screen Negative ng/ml (FSEDML=500) 06/13/17 14:45 MDMA (Ecstasy) Screen Negative ng/ml (XYIMPD=830) 06/13/17 14:45 Benzodiazepines Screen Negative ng/ml (ARGTJB=444) 06/13/17 14:45 Cocaine Screen Negative ng/ml (TDGRLA=020) 06/13/17 14:45 U Marijuana (THC) Screen Negative ng/ml (CUTOFF=50) 06/13/17 14:45 Blood Type B NEGATIVE 06/12/17 14:08 Antibody Screen Negative 06/12/17 14:08 ecg 06/12/17: sr, nl intervals, rbbb cxr: no chf tele: sr echo 05/2017: nl lv/rv, nl rvsp, mild-mod tr a/p: 67 f hx htn, hld, tia, dm here with slurred speech, left arm numbness. slurred speech, arm numbness, hx tia: -sxs resolved now -echo, tele, ecg unremarkable -mra w/o sig carotid dz -plans per neuro htn: -cont home meds hld: -cont statin
--- NOTE | 2017-06-14 13:34 | DS ---
Physical Exam: SUBJECTIVE: Patient seen and examined. No acute events overnight. Patient offers no new complaints. She denies blurry vision, weakness, chills, nausea, sob, and chest pain. OBJECTIVE: Vital Signs Period Temp Pulse Resp BP Sys/Rabago Pulse Ox Last 24 Hr 98.5 F-98.9 F 76-87 16-16 119-132/65-74 PHYSICAL EXAM GENERAL: The patient is awake, alert, and fully oriented, in no acute distress. HEAD: Normal with no signs of trauma. EYES: PERRL, extraocular movements intact, sclera anicteric, conjunctiva clear. No ptosis. ENT: Ears normal, nares patent, oropharynx clear without exudates, moist mucous membranes. NECK: Trachea midline, full range of motion, supple. LUNGS: Breath sounds equal, clear to auscultation bilaterally, no wheezes, no crackles, no accessory muscle use. HEART: Regular rate and rhythm, S1, S2 without murmur, rub or gallop. ABDOMEN: Soft, nontender, nondistended, normoactive bowel sounds, no guarding, no rebound, no hepatosplenomegaly, no masses. EXTREMITIES: 2+ pulses, warm, well-perfused, no edema. RLE strength 4/5. LLE strength 5/5 NEUROLOGICAL: Cranial nerves II through XII grossly intact. Normal speech, gait not observed. PSYCH: Normal mood, normal affect. SKIN: Warm, dry, normal turgor, no rashes or lesions noted LABS Laboratory Results - last 24 hr 06/13/17 06/13/17 06/13/17 14:45 17:06 22:53 POC Glucometer 113 119 Opiates Screen Negative Methadone Screen Negative Barbiturate Screen Negative Phencyclidine Screen Negative Ur Amphetamines Screen Negative MDMA (Ecstasy) Screen Negative Benzodiazepines Screen Negative Cocaine Screen Negative U Marijuana (THC) Screen Negative 06/14/17 06/14/17 06:11 11:30 POC Glucometer 113 95 Opiates Screen Methadone Screen Barbiturate Screen Phencyclidine Screen Ur Amphetamines Screen MDMA (Ecstasy) Screen Benzodiazepines Screen Cocaine Screen U Marijuana (THC) Screen HOSPITAL COURSE: Date of Admission:06/12/17 Patient is a 67 yo F with a PMH of HLD, HTN, and CVA/TIA, traveling from [place], presented to the ED with a left hand tingling numbness, slurred speech, and was noted to have left facial droop . Patient presented at 4 hours and 15 minutes past first noticing symptoms. NIH stroke scale of 3 for left arm drift, slurred speech and left facial droop. Patient was otherwise alert and oriented in no acute distress. Given low NIH and out of 3 hour window, TPA was not given. Patient had a full stroke and cardiac work up with Cardiology and Neuro on board. Head CT revealed No acute intracranial hemorrhage. Chronic right MCA infarcts, chronic right cerebellar infarct and small chronic cortical infarcts in the high left parietal lobe. Brain MRI also unremarkable for acute stroke. Her symptoms subsided while in the ED with patient back at baseline. Patient was discharged today and instructed to follow up outpatient with her PCP, neurologist and metal expediter within 1 week. She was also educated on the importance of a healthy diet and the effects of having high cholesterol. Date of Discharge: 06/14/17 <Humphrey Vuong - Last Filed: 06/14/17 13:22> Minutes to complete discharge: 45 <Myron Foss - Last Filed: 06/14/17 21:17> Discharge Summary Reason For Visit: CVA Current Active Problems HTN (hypertension) (Acute) TIA (transient ischemic attack) (Acute) Cerebrovascular accident (CVA) (Chronic) Left middle cerebral artery embolism (Chronic) - Home Medications Comprehensive Discharge Medication List: Ambulatory Orders Aspirin/Dipyridamole [Aggrenox -] 1 combo PO ONCE 06/12/17 Atorvastatin Calcium 10 mg PO DAILY 06/12/17 Lisinopril 10 mg PO DAILY 06/12/17 Metformin HCl 500 mg PO BID 06/12/17 Clopidogrel Bisulfate [Clopidogrel] 75 mg PO DAILY 06/13/17 Amlodipine Besylate [Norvasc -] 5 mg PO DAILY tablet 06/14/17 Atorvastatin Ca [Lipitor] 80 mg PO HS #30 tablet 06/14/17 Lisinopril [Prinivil] 10 mg PO DAILY tablet 06/14/17 <Humphrey Vuong - Last Filed: 06/14/17 13:22> Current Active Problems HTN (hypertension) (Acute) TIA (transient ischemic attack) (Acute) Cerebrovascular accident (CVA) (Chronic) Left middle cerebral artery embolism (Chronic) - Home Medications Comprehensive Discharge Medication List: Ambulatory Orders RX: Metformin HCl 500 mg PO BID 06/12/17 Clopidogrel Bisulfate [Clopidogrel] 75 mg PO DAILY 06/13/17 RX: Amlodipine Besylate [Norvasc -] 5 mg PO DAILY tablet 06/14/17 RX: Atorvastatin Ca [Lipitor] 80 mg PO HS #30 tablet 06/14/17 RX: Lisinopril [Prinivil] 10 mg PO DAILY tablet 06/14/17 <Myron Foss - Last Filed: 06/14/17 21:17> Condition: Good - Instructions Diet, Activity, Other Instructions: Please follow up with your metal expediter outpatient for further monitoring. A holter monitor is also recommended. Follow up with your neurologist outpatient. Please follow up with your primary care physician in 1 week. Continue with Lipitor 80mg at bedtime since LDL is still high and HDL is low and cholesterol is elevated low fat diet recommended. If you feel short of breath or have chest pain, please go to the nearest emergency room. Disposition: HOME This patient is new to me today: No Emergency Visit: Yes ED Registration Date: 06/12/17 Care time: The patient presented to the Emergency Department on the above date and was hospitalized for further evaluation of their emergent condition. Critical Care patient: No - Discharge Referral Referred to [facility] No <Myron Foss - Last Filed: 06/14/17 21:17>
[2017-06-14 14:53] VITALS: BP 116/64; PULSE 99; TEMP 98.7
[2017-06-14] MEDS: SODIUM CHLORIDE 1,000 ML IV SCH (15:13)
--- NOTE | 2017-06-14 20:53 | PN ---
Teaching Attending Note Name of Resident: Humphrey Vuong ATTENDING PHYSICIAN STATEMENT I saw and evaluated the patient. I reviewed the resident's note and discussed the case with the resident. I agree with the resident's findings and plan as documented. SUBJECTIVE: Patient is comfortable with jonathan cute distress. ready to go home. OBJECTIVE: Vital Signs Temperature 98.7 F 06/14/17 14:52 Pulse Rate 99 H 06/14/17 14:52 Respiratory Rate 18 06/14/17 14:52 Blood Pressure 116/64 06/14/17 14:52 O2 Sat by Pulse Oximetry (%) 98 06/12/17 22:46 CBCD WBC 5.7 K/mm3 (4.0-10.0) 06/12/17 14:12 RBC 4.17 M/mm3 (3.60-5.2) 06/12/17 14:12 Hgb 11.3 GM/dL (10.7-15.3) 06/12/17 14:12 Hct 34.8 % (32.4-45.2) 06/12/17 14:12 MCV 83.5 fl (80-96) 06/12/17 14:12 MCHC 32.5 g/dl (32.0-36.0) 06/12/17 14:12 RDW 14.3 % (11.6-15.6) 06/12/17 14:12 Plt Count 194 K/MM3 (134-434) 06/12/17 14:12 MPV 7.1 fl (7.5-11.1) L 06/12/17 14:12 CMP Sodium 140 mmol/L (136-145) 06/13/17 06:00 Potassium 3.7 mmol/L (3.5-5.1) 06/13/17 06:00 Chloride 107 mmol/L (98-107) 06/13/17 06:00 Carbon Dioxide 28 mmol/L (21-32) 06/13/17 06:00 Anion Gap 5 (8-16) L 06/13/17 06:00 BUN 11 mg/dL (7-18) 06/13/17 06:00 Creatinine 0.9 mg/dL (0.55-1.02) 06/13/17 06:00 Creat Clearance w eGFR > 60 (>60) 06/13/17 06:00 Random Glucose 102 mg/dL (74-106) 06/13/17 06:00 Calcium 8.6 mg/dL (8.5-10.1) 06/13/17 06:00 Total Bilirubin 0.4 mg/dL (0.2-1.0) D 06/13/17 06:00 AST 20 U/L (15-37) 06/13/17 06:00 ALT 21 U/L (12-78) 06/13/17 06:00 Alkaline Phosphatase 118 U/L (45-117) H 06/13/17 06:00 Total Protein 7.2 g/dl (6.4-8.2) 06/13/17 06:00 Albumin 3.1 g/dl (3.4-5.0) L 06/13/17 06:00 CARDIAC ENZYMES Creatine Kinase 197 IU/L (26-192) H 06/12/17 14:20 Troponin I < 0.02 ng/ml (0.00-0.05) 06/12/17 14:20 Home Medications Medication Instructions Recorded Aspirin/Dipyridamole [Aggrenox -] 1 combo PO ONCE 06/12/17 Atorvastatin Calcium 10 mg PO DAILY 06/12/17 Lisinopril 10 mg PO DAILY 06/12/17 Metformin HCl 500 mg PO BID 06/12/17 Clopidogrel Bisulfate [Clopidogrel] 75 mg PO DAILY 06/13/17 Amlodipine Besylate [Norvasc -] 5 mg PO DAILY tablet 06/14/17 Atorvastatin Ca [Lipitor] 80 mg PO HS #30 tablet 06/14/17 Lisinopril [Prinivil] 10 mg PO DAILY tablet 06/14/17 PE: As per resident's note CT of the head: Chronic right MCA infarcts, chronic right cerebellar infarct and small chronic cortical infarcts in the high left parietal lobe. -Brain and neck MRA- unremarkable MRI of the brain no acute changes ASSESSMENT AND PLAN: Patient is a 67 year old female with a past medical history of TIA, HTN, HLD, presents to the ER with left hand numbnesses and slurred speech. . # Acute TIA resolved with hx of old large CVA ordered Brain MRI, echo is unremarkable, carotid is unremarkable On 81mg ASspirin and Plavix neuro consult appreciated, . Holter monitor as an outpatient. cardio consult appreciated. Follow with your doctors as an outpatient, cardio and neurolgy. # T2DM continue home meds # HTN controlled on Lisinopril and Norvasc continue # HLD, needs high intensity Statins : will increase the dose of Lipitor to 80mg from 40mg since High LDL , low HDl
== END 2017-06-14 15:16 | disposition home or self-care (01) | DRG 69 ==
LOC: JER 13:35 → JERBED 16:43 → J4S 23:09
PROVIDERS: ADMIT Internal Medicine; ATTEND Internal Medicine
DX: G45.9 Transient cerebral ischemic attack, unspecified (principal); I10 Essential (primary) hypertension; E78.5 Hyperlipidemia, unspecified; E11.9 Type 2 diabetes mellitus without complications
CPT/HCPCS: 36415; 70450-TC; 70544-TC; 70547-TC; 70551-TC; 71020-TC; 80053; 80061; 80307; 81003; 81015; 82465; 82553; 83718; 83721; 83735; 84100; 84443; 84478; 84484; 85025; 85610; 86850; 86900; 86901; 90688; 93005; 93010; 93306-TC; 93880-TC; 97116-GP; 97161-GP; 99285-25; G0008; J1644